=== PATIENT | female | born 1935 | race Caucasian/White ===

== ENCOUNTER 2018-11-10 12:10 | Inpatient (IN) | payer OTHER ==
[~2018-11-10] VITALS: Ht 152.4 cm; Wt 50.9 kg
[2018-11-10] MEDS ORDERED: SODIUM CHLORIDE FLUSH 10ML SYR IVF ONE (12:30)
--- NOTE | 2018-11-10 12:39 | NUR ---
PT IN XRAY NOW.
--- NOTE | 2018-11-10 12:44 | NUR ---
PT BACK TO ROOM FROM XRAY.
--- NOTE | 2018-11-10 13:00 | NUR ---
EFFIE. REPORT RECEIVED FROM EMS. PT FELL ON ICY SURFACE AT [employer] WITH HITTING ON LEFT HIP TODAY AROUND 11:15. PT C/O LEFT HIP PAIN. PT DENIES ANY INJURY ON HEAD. PT AOX4. RESPS EVEN AND UNLABORED.
--- NOTE | 2018-11-10 13:10 | NUR ---
PT REFUSING IV AND PAIN MEDICATION AT THIS TIME D/T [facility] [employer]IEFS. EDMD AWARE. RESULTS EXPLAINED TO PT BY EDMD RESENDIZ. PT IS A&O, RESPS EVEN AND UNLABORED. +3 DORSALIS PEDIS PULSE PRESENT TO LEFT FOOT. FRIENDS AT BEDSIDE.
--- NOTE | 2018-11-10 13:27 | NUR ---
PT REFUSING EKG. MD AWARE.
--- NOTE | 2018-11-10 14:15 | NUR ---
SW at bedside to discuss pt's plan of care and tx options.
--- NOTE | 2018-11-10 14:24 | NUR ---
SW AT BEDSIDE STILL.
--- NOTE | 2018-11-10 14:45 | NUR ---
POC discussed with pt. Pt was educated regarding radiology results and recommended plan or care which is surgery. Pt states "I'm still considering surgery, I don't know if I want it yet." pt is a&o, resps even and unlabored. tracien at this time. friends at bedside.
--- NOTE | 2018-11-10 15:02 | NUR ---
PT PROVIDED BEDPAN. PT HAD ONE BOWEL MOVEMENT AT THIS TIME.
--- NOTE | 2018-11-10 15:41 | NUR ---
PT AOX4. RESPS EVEN AND UNLABORED. PT DECIDED TO HAVE SURGERY AT THIS TIME. EDMD NOTIFIED.
[2018-11-10] MEDS ORDERED: ONDANSETRON 2MG/ML, 2ML IVPush PRN (16:00)
[2018-11-10] MEDS ORDERED: SODIUM CHLORIDE FLUSH 10ML SYR IVF PRN (16:00)
[2018-11-10] MEDS ORDERED: HYDROmorphone 1 MG/ML, 1ML IVPush PRN (16:00)
[2018-11-10 16:06] LABS: BASOPHILS # (AUTO) 0.03 x10^3/uL (0-0.1); BASOPHILS % (AUTO) 0 % (0-1); EOSINOPHILS % (AUTO) 0 % (1-7); LYMPHOCYTES # (AUTO) 0.46 x10^3/uL (1-3.4); LYMPHOCYTES % (AUTO) 3 % (22-44); MD NO; MEAN CORPUSCULAR HEMOGLOBIN 32.1 pg (27.0-34.8); MEAN CORPUSCULAR HGB CONC 34.4 g/dL (32.4-35.8); MEAN CORPUSCULAR VOLUME 93.4 fL (80-100); MEAN PLATELET VOLUME 7.4 fL (7.4-10.4); MONOCYTES # (AUTO) 0.48 x10^3/uL (0.2-0.8); MONOCYTES % (AUTO) 3 % (2-9); NEUTROPHILS # (AUTO) 16.64 x10^3/uL (1.8-6.8); NEUTROPHILS % (AUTO) 94 % (42-75); PLATELET COUNT 310 x10^3/uL (130-400); RED CELL DISTRIBUTION WIDTH 13.2 % (9.6-15.2)
--- NOTE | 2018-11-10 16:07 | NUR ---
PT REFUSED PAIN MED(DILAUDID) AND ZOFRAN AT THIS TIME. PT AOX4. RESPS EVEN AND UNLABORED.
--- NOTE | 2018-11-10 16:08 | NUR ---
PT EDUCATED NPO STATUS.
--- NOTE | 2018-11-10 16:20 | NUR ---
ekg taken by this RN with pt's permission. reviewed by MILAGROS Barbosa.
--- NOTE | 2018-11-10 16:23 | NUR ---
sbar report given to pérez gallego. all questions answered.
[2018-11-10] MEDS ORDERED: ACETAMINOPHEN 325 MG TABLET PO PRN ×2 (16:30→18:30)
[2018-11-10] MEDS ORDERED: morphine SULFATE 10 MG/ML, 1ML IVPush PRN (16:30)
[2018-11-10] MEDS ORDERED: hydrALAzine 20 MG/ML, 1ML IVPush PRN (16:30)
[2018-11-10] MEDS ORDERED: LABETALOL 5MG/ML, 20ML IVPush PRN (16:30)
[2018-11-10 16:44] LABS: INTERNATIONAL NORMALIZED RATIO 1.07 (0.93-1.1); PROTHROMBIN TIME 11.3 Seconds (9.6-11.5)
[2018-11-10 16:46] LABS: ALANINE AMINOTRANSFERASE 23 U/L (12-78); ALBUMIN 3.7 g/dL (3.4-5.0); ANION GAP 9 mmol/L (5-15); CALCIUM 8.8 mg/dL (8.5-10.1); CHLORIDE 106 mmol/L (98-107); CREATININE 0.59 mg/dL (0.55-1.02)
[2018-11-10 16:48] LABS: ALKALINE PHOSPHATASE 91 U/L (45-117); BILIRUBIN,TOTAL 0.6 mg/dL (0.2-1.0); TOTAL PROTEIN 7.2 g/dL (6.4-8.2)
[2018-11-10 17:00] VITALS: BP 121/76
[2018-11-10] MEDS: SODIUM CHLORIDE 0.9% 1,000 ML IV SCH (17:55)
[2018-11-10] MEDS ORDERED: ALBUTEROL/IPRATROPIUM 2.5MG/0.5MG, 3 ML NPPB PRN (18:30)
[2018-11-10] MEDS ORDERED: hydrALAzine 20 MG/ML, 1ML IV PRN (18:30)
[2018-11-10] MEDS ORDERED: OXYcodone 5 MG/5 ML ORAL.SOL UDC PO PRN (18:30)
[2018-11-10] MEDS ORDERED: MEPERIDINE/PF 25MG/0.5ML IVPush PRN (18:30)
[2018-11-10] MEDS ORDERED: HYDROmorphone 2 MG/ML, 1ML IVPush PRN (18:30)
[2018-11-10] MEDS ORDERED: ONDANSETRON 2MG/ML, 2ML IV PRN (18:30)
[2018-11-10] MEDS ORDERED: MIDAZOLAM 1 MG/ML, 2ML IV PRN (18:30)
[2018-11-10] MEDS ORDERED: FENTANYL PF 100 MCG/2ML IV PRN (18:30)
[2018-11-10] MEDS ORDERED: PROMETHAZINE 25 MG/ML, 1ML IV PRN (18:30)
[2018-11-10] MEDS ORDERED: FENTANYL PF 100 MCG/2ML ONE ×2 (18:55→19:33)
[2018-11-10] MEDS ORDERED: DEXAMETHASONE 4 MG/ML, 1ML ONE (19:35)
[2018-11-10] MEDS ORDERED: CEFAZOLIN 1,000 MG ONE (19:35)
[2018-11-10] MEDS ORDERED: PROPOFOL 10 MG/ML, 20ML ONE ×2 (19:35→19:36)
[2018-11-10] MEDS ORDERED: ONDANSETRON 2MG/ML, 2ML ONE (19:35)
[2018-11-10] MEDS ORDERED: SUCCINYLCHOLINE 20 MG/ML, 10ML ONE (19:36)
[2018-11-10] MEDS ORDERED: CEFAZOLIN 1,000 MG IM SCH (20:00)
[2018-11-10] MEDS ORDERED: EPHEDRINE 50 MG/ML, 1ML ONE (20:24)
[2018-11-10] MEDS ORDERED: EPHEDRINE 50 MG/ML, 1ML IVPush PRN (20:30)
[2018-11-10 21:46] VITALS: BP 111/70
[2018-11-11 00:14] VITALS: BP 103/58
[2018-11-11] MEDS: CEFAZOLIN PMX 1GM/50ML 50 ML IV SCH ×3 (03:30→19:06)
[2018-11-11 04:35] VITALS: BP 106/66
[2018-11-11 05:36] LABS: BASOPHILS # (AUTO) 0.01 x10^3/uL (0-0.1); BASOPHILS % (AUTO) 0 % (0-1); EOSINOPHILS % (AUTO) 0 % (1-7); LYMPHOCYTES # (AUTO) 0.51 x10^3/uL (1-3.4); LYMPHOCYTES % (AUTO) 4 % (22-44); MD NO; MEAN CORPUSCULAR HEMOGLOBIN 31.6 pg (27.0-34.8); MEAN CORPUSCULAR HGB CONC 33.4 g/dL (32.4-35.8); MEAN CORPUSCULAR VOLUME 94.4 fL (80-100); MEAN PLATELET VOLUME 7.9 fL (7.4-10.4); MONOCYTES # (AUTO) 0.78 x10^3/uL (0.2-0.8); MONOCYTES % (AUTO) 6 % (2-9); NEUTROPHILS # (AUTO) 10.79 x10^3/uL (1.8-6.8); NEUTROPHILS % (AUTO) 89 % (42-75); PLATELET COUNT 252 x10^3/uL (130-400); RED CELL DISTRIBUTION WIDTH 13.6 % (9.6-15.2)
[2018-11-11 05:43] LABS: ANION GAP 7 mmol/L (5-15); CALCIUM 8.3 mg/dL (8.5-10.1); CHLORIDE 104 mmol/L (98-107)
[2018-11-11 07:05] VITALS: BP 103/63
[2018-11-11] MEDS: ENOXAPARIN 30 MG/0.3 ML SQ SCH (08:00)
[2018-11-11 13:20] VITALS: BP 94/57
[2018-11-11] MEDS: SODIUM CHLORIDE 0.9% 1,000 ML IV SCH (17:34)
[2018-11-11 20:06] VITALS: BP 100/61
[2018-11-12 02:30] VITALS: BP 103/56
[2018-11-12] MEDS: CEFAZOLIN PMX 1GM/50ML 50 ML IV SCH (03:30)
[2018-11-12 04:48] LABS: BASOPHILS # (AUTO) 0.07 x10^3/uL (0-0.1); BASOPHILS % (AUTO) 1 % (0-1); EOSINOPHILS # (AUTO) 0.01 x10^3/uL (0-0.4); EOSINOPHILS % (AUTO) 0 % (1-7); LYMPHOCYTES # (AUTO) 1.53 x10^3/uL (1-3.4); LYMPHOCYTES % (AUTO) 16 % (22-44); MD NO; MEAN CORPUSCULAR HEMOGLOBIN 31.8 pg (27.0-34.8); MEAN CORPUSCULAR HGB CONC 33.5 g/dL (32.4-35.8); MEAN CORPUSCULAR VOLUME 94.9 fL (80-100); MEAN PLATELET VOLUME 7.3 fL (7.4-10.4); MONOCYTES # (AUTO) 1.04 x10^3/uL (0.2-0.8); MONOCYTES % (AUTO) 11 % (2-9); NEUTROPHILS # (AUTO) 6.76 x10^3/uL (1.8-6.8); NEUTROPHILS % (AUTO) 72 % (42-75); PLATELET COUNT 211 x10^3/uL (130-400); RED BLOOD COUNT 2.95 x10^6/uL (3.82-5.3); RED CELL DISTRIBUTION WIDTH 13.6 % (9.6-15.2)
[2018-11-12 04:52] LABS: ANION GAP 5 mmol/L (5-15); CALCIUM 8.3 mg/dL (8.5-10.1); CHLORIDE 110 mmol/L (98-107)
[2018-11-12 04:53] LABS: CREATININE 0.76 mg/dL (0.55-1.02)
[2018-11-12 07:05] VITALS: BP 101/53
[2018-11-12] MEDS: ENOXAPARIN 30 MG/0.3 ML SQ SCH (07:16)
[2018-11-12] MEDS ORDERED: ENOX40SY4 SQ (10:36)
[2018-11-12] MEDS ORDERED: OXYC5CAP2 PO (10:37)
== END 2018-11-12 11:22 | disposition home or self-care (01) | DRG 481 ==
LOC: ED 13:21 → EDIP 15:51 → 4NOR 16:47
PROVIDERS: ADMIT Hospitalist; ATTEND Hospitalist
PROC: 0QS736Z Reposition Left Upper Femur with Intramedullary Internal Fixation Device, Percutaneous Approach (ICD-10-PCS; principal; 2018-11-10 18:45)
DX: S72.145A Nondisplaced intertrochanteric fracture of left femur, initial encounter for closed fracture (principal); R71.0 Precipitous drop in hematocrit; W00.0XXA Fall on same level due to ice and snow, initial encounter; Y93.01 Activity, walking, marching and hiking; Z60.2 Problems related to living alone; D72.829 Elevated white blood cell count, unspecified; Y92.89 Other specified places as the place of occurrence of the external cause; Y99.8 Other external cause status
CPT/HCPCS: 36415; 71045; 76000; 80048; 80053; 85025; 85610; 85730; 93005; 99285; C1713; G0378; J0690; J1100; J2405; J2704; J3010; J0330; J7030